=== PATIENT | female | born 2000 | race Caucasian/White ===

== ENCOUNTER 2020-09-03 09:09 | Emergency (ER) | payer MEDICAID ==
[~2020-09-03] VITALS: Ht 160 cm; Wt 74.8 kg
== END 2020-09-03 13:25 | disposition home or self-care (01) ==
LOC: ED 09:09
DX: E86.0 Dehydration (principal); G47.00 Insomnia, unspecified; D64.9 Anemia, unspecified; F17.200 Nicotine dependence, unspecified, uncomplicated; Z88.8 Allergy status to other drugs, medicaments and biological substances
CPT/HCPCS: 80048; 81001; 84703; 85025; 99284; J7030